=== PATIENT | male | born 1950 | race Two or more races ===

== ENCOUNTER 2017-09-02 15:26 | Inpatient (IN) | payer MEDICARE, MEDICAID ==
[~2017-09-02] VITALS: Ht 177.8 cm; Wt 88.5 kg
--- NOTE | 2017-09-02 15:30 | NUR ---
BBRA FROM HOME FOR SOB X 3 DAYS. PATIENT RECIEVED AWAKE AND ALERT, ON O2 VA NC @2LPM SATING 955. PATIENT APPEARS IN NO APPARENT DISTRESS. SKN IS WARM TO TOUCH AND NON DIAPHORETIC. PATIENT IS AFEBRILE. VSS.
--- NOTE | 2017-09-02 15:41 | NUR ---
PENDING MD CRANE
--- NOTE | 2017-09-02 16:00 | NUR ---
MD QUIROGA AT BEDSIDE
[2017-09-02 16:11] LABS: BASOPHILS # (AUTO) 0.3 /CMM (0.0-0.2); EOSINOPHILS # (AUTO) 0.3 /CMM (0.0-0.7); EOSINOPHILS % (AUTO) 2.9 % (0.0-6.0); HEMATOCRIT 48 % (39-51); HEMOGLOBIN 14.6 g/dL (13.5-17.5); LYMPHOCYTES # (AUTO) 1.4 /CMM (0.8-4.8); LYMPHOCYTES % (AUTO) 15.8 % (20.0-44.0); MEAN CORPUSCULAR HEMOGLOBIN 25 PG (26.0-33.0); MEAN CORPUSCULAR HGB CONC 31 g/dl (31.0-36.0); MEAN CORPUSCULAR VOLUME 81 fL (80-96); MONOCYTES # (AUTO) 0.7 /CMM (0.1-1.30); MONOCYTES % (AUTO) 7.5 % (2.0-12.0); NEUTROPHILS # (AUTO) 6.1 /CMM (1.8-8.9); NEUTROPHILS % (AUTO) 69.8 % (43.0-81.0); PLATELET COUNT (AUTO) 188 /CMM (150-450); RDW COEFFICIENT OF VARIATION 17.9 (11.5-15.0); RED BLOOD CELL COUNT(AUTO) 5.89 MIL/uL (4.5-6.0); WHITE BLOOD COUNT (AUTO) 8.8 K/uL (4.3-11.0)
--- NOTE | 2017-09-02 16:18 | NUR ---
IT TECHNICAL ARCHITECT AT BEDSIDE
[2017-09-02 16:24] LABS: INR 1.22 (0.85-1.15)
[2017-09-02 16:34] LABS: TROPONIN I 0.547 ng/mL (0.00-0.056)
[2017-09-02 16:35] LABS: BILIRUBIN,DIRECT 0.3 mg/dL (0.0-0.2); BILIRUBIN,TOTAL 0.5 mg/dL (0.2-1.0); CALCIUM, SERUM 8.5 mg/dL (8.5-10.1); CREATININE 3.4 mg/dL (0.6-1.3); POTASSIUM 4.9 mmol/L (3.5-5.1); TOTAL PROTEIN, SERUM 7.4 g/dL (6.4-8.2)
[2017-09-02] MEDS ORDERED: ASPIRIN 81 MG TAB.CHEW PO ONE (17:00)
[2017-09-02] MEDS ORDERED: FUROSEMIDE 40 MG/4 ML VIAL IV ONE (17:00)
[2017-09-02] MEDS ORDERED: FUROSEMIDE 40 MG/4 ML VIAL ONE (17:02)
[2017-09-02] MEDS ORDERED: ASPIRIN 81 MG TAB.CHEW ONE (17:03)
[2017-09-02] MEDS ORDERED: GLIM4TAB2 PO (17:58)
[2017-09-02] MEDS ORDERED: FURO40TA5 PO (17:58)
[2017-09-02] MEDS ORDERED: VALS160T2 PO (17:58)
[2017-09-02] MEDS ORDERED: METO-357 PO (17:58)
[2017-09-02] MEDS ORDERED: AMLO5TAB2 PO (17:58)
[2017-09-02] MEDS ORDERED: INSU100I30 SQ (17:58)
[2017-09-02] MEDS ORDERED: ROSU20TA PO (17:58)
[2017-09-02] MEDS ORDERED: DIGO125T PO (17:58)
[2017-09-02] MEDS ORDERED: ESOM40CA PO (17:58)
[2017-09-02] MEDS ORDERED: METF850T2 PO (17:58)
[2017-09-02] MEDS ORDERED: APIX5TAB PO (17:58)
[2017-09-02] MEDS ORDERED: INSU100I4 SQ (17:58)
--- NOTE | 2017-09-02 17:59 | NUR ---
REPORT GIVEN TO ELLYN AGUIRRE FOR MARK
--- NOTE | 2017-09-02 19:20 | NUR ---
[facility] RN NOTE RECIEVED PT IN BED ASLEEP, AROUSABLE. A/O X 4, NO SOB NOTED. NO DISTRESS OR DISCOMFORT NOTED. DENIES PAIN. ON O2 15L SIMPLE MASK O2 SAT 94%. PT GETS SOB ON EXCERTION AND ALSO PT KEPT ON REMOVING THE MASK, REMINDED HIM NOT TO DO THAT. ON TELE MONITOR A FIB HR 70'S CONTROLLED. SL #20 G IN LT HAND INTACT AND PATENT, NO S/S OF INFILTRATION NOTED. SKIN INTACT. FAMILY AT BED SIDE. KEPT HOB ELEVATED. WAITING FOR DR ANGEL ADMITTING ORDERS, VSS. ORIENTED HIM TO HIS ROOM. SIDE RAILS UP X 2 AND CALL LIGHT WITHIN REACH. CONTINUE TO MONITOR HIM.
[2017-09-02 19:27] VITALS: BP 104/80
--- NOTE | 2017-09-02 20:00 | NUR ---
[facility] RN NOTE PAGED DR ANGEL FOR ADMITTING ORDERS.
--- NOTE | 2017-09-02 20:20 | NUR ---
[facility] RN NOTE DR ANGEL VISITED THE FLOOR AND GAVE ADMITTING ORDERS, PT'S ADMITTING DX IS CHF EXACERBATION. ADMITTING ORDERS CHECKED AND CARRIED OUT.
[2017-09-02] MEDS ORDERED: DEXTROSE 50%-WATER 50 ML DISP.SYRIN IV PRN (20:30)
[2017-09-02] MEDS ORDERED: ACETAMINOPHEN 325 MG TABLET PO PRN (20:30)
[2017-09-02] MEDS ORDERED: ONDANSETRON HCL/PF 4 MG/2 ML VIAL IVP PRN (20:30)
[2017-09-02] MEDS ORDERED: ZOLPIDEM TARTRATE 5 MG TABLET PO PRN (20:30)
[2017-09-02] MEDS ORDERED: MAGNESIUM HYDROXIDE 30 ML UDC PO PRN (20:30)
[2017-09-02] MEDS ORDERED: MAG HYDROX/AL HYDROX/SIMETH 30 ML UDC PO PRN (20:30)
[2017-09-02] MEDS ORDERED: Z GUARD REMEDY 2 OZ OINT TP PRN (20:30)
--- NOTE | 2017-09-02 20:30 | NUR ---
[facility] RAGLAND NOTE PT MASK IS CHANGED TO REBRETHER MASK, O2 15L O2 SAT 96% AND AT ROOM AIR IT DROPS TO 82. ALSO REMINDED PT NOT TO REMOVE THE MASK. KEPT HOB ELEVATED TO HELP HIM BREATH BETTER. Addendum: 09/03/17 at 0519 by YUMIKO JAMES RN KEPT THE SIMPLE MASK. ERROR WRITTEN CHANGED TO REBREATHER MASK.
--- NOTE | 2017-09-02 21:00 | NUR ---
[facility] RN NOTE PT DENIED ANY SKIN ISSUES EARLIER, NOTED RT KNEE WITH BRUISE AND DR HENSON, PER PT HE FELL DOWN BEFORE.
[2017-09-02] MEDS: BLOOD SUGAR DIAGNOSTIC 1 EACH STRIP IN SCH (21:51)
[2017-09-02] MEDS: INSULIN REGULAR, HUMAN 100 UNIT/ML 3 ML VIAL SQ PRN (21:54)
--- NOTE | 2017-09-02 23:00 | NUR ---
[facility] RN NOTE PT DENIES ANY CHEST PAIN OR DISCOMFORT. TROP RESULT CAME 0.647. REMAIN A FIB. CONTINUE TO MONITOR. VSS. PT AT TIMES DONOT FOLLOW THE IMPORTANCE OF O2 MASK ON. KEPT ON REMOVING IT. STATES "I AM OK DON'T WORRY". TEACHING ABOUT THE O2 DONE.
--- NOTE | 2017-09-02 23:30 | NUR ---
[facility]IM[facility] RN NOTE DR BONG LAGOS INFORMED REGARDING TROP ELEVATED. AND CARDIAC CONSULT DR SCHOFIELD IN AM. NO NEW ORDER GIVEN AT THIS TIME.
[2017-09-03] VITALS (23 sets, daily range): BP systolic 84–152; BP diastolic 45–74
--- NOTE | 2017-09-03 02:35 | NUR ---
[facility]IM[facility] RN NOTE DR LAGOS INFORMED THAT PT IS VERY CONGESTED WITH SOB, GAVE NEW ORDER OF BTX, ORDER NOTED AND CARRIED OUT. Addendum: 09/03/17 at 0236 by YUMIKO JAMES RN RT INFORMED.
[2017-09-03] MEDS: ALBUTEROL FS 2.5 MG/3 ML VIAL.NEB NEB SCH ×6 (03:25→23:11)
--- NOTE | 2017-09-03 04:37 | NUR ---
[facility] RN NOTE PT NOTED O2 SAT 91% LUNGS SOUND IS CRACKLING WHEN AUSCULTATED. DR LAGOS INFORMED AND RECEIVED NEW ORDER, ORDER NOTED AND CARRIED OUT. LASIX 40 MG IVP GIVEN. K 4.9. VSS. CONTINUE TO MONITOR HIM.
[2017-09-03] MEDS ORDERED: FUROSEMIDE 40 MG/4 ML VIAL IV ONE (05:00)
[2017-09-03] MEDS ORDERED: FUROSEMIDE 40 MG/4 ML VIAL IV SCH (05:00)
--- NOTE | 2017-09-03 05:00 | NUR ---
[facility] RN NOTE PT NOTED O2 SAT DROPPING TO 89%, MASK CHANGE TO NON RE BREATHING. O2 SAT WENT UP TO 95% ON 15 L. KEPT HIGH RUIZ POSITION.
[2017-09-03 05:24] LABS: CALCIUM, SERUM 8.4 mg/dL (8.5-10.1); CREATININE 3.2 mg/dL (0.6-1.3); MAGNESIUM 2.2 mg/dL (1.8-2.4); PHOSPHORUS 6.1 mg/dL (2.5-4.9); POTASSIUM 5.3 mmol/L (3.5-5.1)
[2017-09-03 05:38] LABS: BASOPHILS # (AUTO) 0.2 /CMM (0.0-0.2); BASOPHILS % (AUTO) 1.8 % (0.0-2.0); EOSINOPHILS # (AUTO) 0.3 /CMM (0.0-0.7); EOSINOPHILS % (AUTO) 2.8 % (0.0-6.0); HEMATOCRIT 47 % (39-51); HEMOGLOBIN 14.3 g/dL (13.5-17.5); LYMPHOCYTES # (AUTO) 1.2 /CMM (0.8-4.8); LYMPHOCYTES % (AUTO) 12.1 % (20.0-44.0); MEAN CORPUSCULAR HEMOGLOBIN 25 PG (26.0-33.0); MEAN CORPUSCULAR HGB CONC 30 g/dl (31.0-36.0); MEAN CORPUSCULAR VOLUME 82 fL (80-96); MONOCYTES # (AUTO) 0.8 /CMM (0.1-1.30); MONOCYTES % (AUTO) 8.4 % (2.0-12.0); NEUTROPHILS # (AUTO) 7.6 /CMM (1.8-8.9); NEUTROPHILS % (AUTO) 74.9 % (43.0-81.0); PLATELET COUNT (AUTO) 169 /CMM (150-450); RDW COEFFICIENT OF VARIATION 19.6 (11.5-15.0); RED BLOOD CELL COUNT(AUTO) 5.73 MIL/uL (4.5-6.0); WHITE BLOOD COUNT (AUTO) 10.1 K/uL (4.3-11.0)
--- NOTE | 2017-09-03 05:41 | NUR ---
[facility] RN NOTE TROPONIN LEVEL TRENDING DOWN TO 0.577, DR MONSALVE MADE AWARE. PT DENIES ANY CHEST PAIN.
--- NOTE | 2017-09-03 06:31 | NUR ---
[facility] RN NOTE PT IN BED ASLEEP, EASILY AROUSABLE. REMAIN ON NON REBREATHING MASK ON O2 15L O2 SAT 96%. SL ON LT HAND INTACT AND PATENT. ON TELE A FIB HR IN 100'S. SIDE RAILS UP X 2 AND CALL LIGHT WITHIN REACH. WILL ENDORSE TO DAY SHIFT NURSE FOR CONTINUE TO CARE.
--- NOTE | 2017-09-03 07:30 | NUR ---
[facility] RN AM NOTE RECEIVED PT IN BED, EYES CLOSED, RESPONDS TO NAME AND TOUCH, AOX 3, ON NON REBREATHING MASK ON O2 15L O2 SAT 94%. RESPIRATION UNLABORED,TELE METRY READS AFIB HR 84, DENIES CHEST PAIN/DISCOMFORT. LEFT HAND G20 IVHL, FLUSHES WELL, SITE CLEAR. SE NURSING FLOWSHEET FOR SKIN ISSUES. CARDIAC CCHO DIET. BEDBOUND FOR NOW. SIDE RAILS UP X 2 AND CALL LIGHT WITHIN REACH. WILL CONTINUE TO MONITOR.
[2017-09-03 08:03] LABS: ABG BASE EXCESS -4.8 mmol/L; ABG PCO2 87.6 mmHg (35.0-45.0); ABG PH 7.109 (7.350-7.450); ABG PO2 75.2 mmHg (75.0-100.0); AaDO2 197.5 mmHg; COHb 1.2 % (0.5-1.5); MetHb 0.2 % (0.0-1.5); O2Hb 91.7 % (94.0-97.0); SITE, ABG Right Radial; VENT MODE, BG ON RESP TX
--- NOTE | 2017-09-03 08:23 | NUR ---
[facility] RN NOTES PATIENT TRANSFERRED TO ICU RM [id number]. REPORT GIVEN MARGO Britton ALL BELONGINGS CHECKED AND ENDORSED. Addendum: 09/03/17 at 0946 by HARLEY BROCK RN ADDENDUM UNABLE TO OBTAIN ACCUCHECK DUE TO ONGOING [facility] STAFF MEETING AT THE FLOOR AND PATIENT TRANSFERRED RIGHT AWAY.
[2017-09-03] MEDS ORDERED: APIXABAN 5 MG TABLET PO ONE ×2 (09:00→10:30)
[2017-09-03] MEDS: GLIMEPIRIDE 4 MG TABLET PO SCH (09:00)
[2017-09-03] MEDS ORDERED: METFORMIN 850 MG TABLET PO SCH (09:00)
[2017-09-03] MEDS ORDERED: AMLODIPINE BESYLATE 5 MG TABLET PO SCH (09:00)
[2017-09-03] MEDS: PANTOPRAZOLE 40 MG TABLET.DR PO SCH (09:00)
[2017-09-03] MEDS: FUROSEMIDE 40 MG/4 ML VIAL IV SCH (09:00)
[2017-09-03] MEDS ORDERED: METOPROLOL SUCCINATE 50 MG TAB.SR.24H PO SCH (09:00)
[2017-09-03] MEDS ORDERED: VALSARTAN 80 MG TABLET PO SCH (09:00)
[2017-09-03] MEDS ORDERED: INSULIN ASPART/LISPRO 100 UNIT/ML CARTRIDGE SQ PRN ×2 (09:00)
[2017-09-03] MEDS: BLOOD SUGAR DIAGNOSTIC 1 EACH STRIP IN SCH ×4 (09:08→22:18)
[2017-09-03] MEDS: FUROSEMIDE 100 MG/10 ML VIAL IV SCH ×3 (09:29→17:12)
[2017-09-03 10:33] LABS: ABG BASE EXCESS -2.7 mmol/L; ABG OXYGEN SATURATION 86.5 % (92.0-98.5); ABG PCO2 60.8 mmHg (35.0-45.0); ABG PH 7.245 (7.350-7.450); AaDO2 198.7 mmHg; COHb 1.7 % (0.5-1.5); MetHb 0.5 % (0.0-1.5); O2Hb 84.6 % (94.0-97.0); PEEP,BG 5 cm H2O; SITE, ABG Left Radial; VENT MODE, BG AC 50%; VT, ABG 360 mL
--- NOTE | 2017-09-03 10:58 | NUR ---
FORENSIC INVESTIGATOR NOTE 0830: Received patient from [facility] for Bipap needs secondary to CHF exacerbation. Patient is awake, A/Ox3, Slovak speaking, understands little Chinese. No c/o discomfort at this time. Sat 86% on NRB mask. Placed by RT on Bipap, 18/5 45%, rate 16. With PIV on LH g20, placed new PIV RH g18. Afib 80's. Noted with crackles and rales during auscultation. Will keep NPO for now for Bipap. 0900: Paced on condom catheter for output monitoring. Patient agreed. Asked family to bring Eliquis from home per pharmacy, said she will get it after lunch, made pharmacy aware. S/E by Dr. Lakhani, with order to given 80 Lasix x3 today. 0920: S/E by Dr. Muir, with order to repeat ABG after 1 hr. 1050: Dr. Muir aware for ABG, with order to change Bipap setting 25/10, and repeat ABG @ 1300, RT aware.
[2017-09-03] MEDS: DIGOXIN 0.125 MG TABLET PO SCH (12:32)
[2017-09-03 13:08] LABS: ABG BASE EXCESS -0.1 mmol/L; ABG OXYGEN SATURATION 91.1 % (92.0-98.5); ABG PCO2 70.7 mmHg (35.0-45.0); ABG PH 7.236 (7.350-7.450); AaDO2 177.4 mmHg; COHb 1.2 % (0.5-1.5); MetHb 0.4 % (0.0-1.5); O2Hb 89.6 % (94.0-97.0); SITE, ABG Right Radial; VENT MODE, BG ST 25/10
--- NOTE | 2017-09-03 15:02 | NUR ---
RT NOTE: LATE ENTRY- PATIENT FOUND IN DISTRESS ON A NON-REBREATHER MASK AT 15 LPM. SP02 94%. NOTIFIED CHARGE NURSE (EULOGIO). PLACED ON HHN VIA AEROSOL MASK AND ABG WAS ORDERED AND DRAWN. ABG RESULTS WERE REPORTED TO CHARGE NURSE. [id number] WAS TRANSFERRED TO ICU AND PLACED BIPAP. SETTINGS PER ORDER. PATIENT TOLERATING WELL. ALARMS SET AND AUDIBLE. CHANGES MADE PER 'S ORDER. AMBU BAG AT [facility].
[2017-09-03 16:17] LABS: ABG BASE EXCESS -0.4 mmol/L; ABG OXYGEN SATURATION 92.9 % (92.0-98.5); ABG PH 7.273 (7.350-7.450); ABG PO2 67.3 mmHg (75.0-100.0); AaDO2 255.9 mmHg; COHb 1.3 % (0.5-1.5); MetHb 0.4 % (0.0-1.5); O2Hb 91.3 % (94.0-97.0); SITE, ABG Right Radial; VENT MODE, BG BIPAP 25/8
--- NOTE | 2017-09-03 16:36 | NUR ---
SPINNER FRAME NOTE Updated Dr. Muir re: ABG result, ordered no changes and will do ABG off Bipap in am. at bedside, patient and aware for the POC.
[2017-09-03] MEDS: HOME MED - ELIQUIS 5MG PO SCH (17:12)
--- NOTE | 2017-09-03 18:49 | NUR ---
MANAGER OF ENGINEERING NOTE Patient will be on Bipap overnight, patient remained compliant. Kept clean, warm and dry. Needs attended. Kept call light at reach. PIVs intact. No any significant changes noted at this time. Condom catheter intact. Noted with 2050mL urine output during the shift.
--- NOTE | 2017-09-03 19:30 | NUR ---
INSPECTOR TIMERS INITIAL NOTE RECEIVED PATIENT FROM MARGO RAGLAND. PT IN BED. A/A/O X4. ON BIPAP. TOLERATING SETTINGS. 04/04 RATE 55% RATE 16. LUNG SOUNDS COARSE. BOWEL SOUNDS PRESENT. CONDOM CATH PATENT AND INTACT. PULSES PRESENT. IV PATENT AND INTACT. PT MOVES INDEPENDENTLY IN BED. BED IN LOW LOCKED POSITION. WILL CONTINUE TO MONITOR.
[2017-09-03] MEDS: INSULIN GLARGINE, 100 UNIT/ML CARTRIDGE SQ SCH (22:00)
[2017-09-03] MEDS: ATORVASTATIN 40 MG TABLET PO SCH (22:18)
[2017-09-04] VITALS (18 sets, daily range): BP systolic 91–132; BP diastolic 45–71
[2017-09-04] MEDS: HYDROCODONE/APAP 5/325MG 1 EACH TABLET PO PRN ×2 (01:03→16:50)
[2017-09-04] MEDS: ALBUTEROL FS 2.5 MG/3 ML VIAL.NEB NEB SCH ×6 (03:54→23:54)
[2017-09-04 05:27] LABS: BASOPHILS # (AUTO) 0.1 /CMM (0.0-0.2); BASOPHILS % (AUTO) 1.1 % (0.0-2.0); EOSINOPHILS # (AUTO) 0.4 /CMM (0.0-0.7); EOSINOPHILS % (AUTO) 3.6 % (0.0-6.0); HEMATOCRIT 46 % (39-51); HEMOGLOBIN 14.3 g/dL (13.5-17.5); LYMPHOCYTES # (AUTO) 1.2 /CMM (0.8-4.8); LYMPHOCYTES % (AUTO) 12.3 % (20.0-44.0); MEAN CORPUSCULAR HEMOGLOBIN 25 PG (26.0-33.0); MEAN CORPUSCULAR HGB CONC 31 g/dl (31.0-36.0); MEAN CORPUSCULAR VOLUME 81 fL (80-96); MONOCYTES # (AUTO) 0.8 /CMM (0.1-1.30); MONOCYTES % (AUTO) 7.7 % (2.0-12.0); NEUTROPHILS # (AUTO) 7.6 /CMM (1.8-8.9); NEUTROPHILS % (AUTO) 75.3 % (43.0-81.0); PLATELET COUNT (AUTO) 177 /CMM (150-450); RDW COEFFICIENT OF VARIATION 19.6 (11.5-15.0); RED BLOOD CELL COUNT(AUTO) 5.66 MIL/uL (4.5-6.0); WHITE BLOOD COUNT (AUTO) 10.1 K/uL (4.3-11.0)
[2017-09-04 05:42] LABS: ALBUMIN 2.7 g/dL (3.4-5.0); BILIRUBIN,TOTAL 0.8 mg/dL (0.2-1.0); CALCIUM, SERUM 8.4 mg/dL (8.5-10.1); CREATININE 3.2 mg/dL (0.6-1.3); MAGNESIUM 1.9 mg/dL (1.8-2.4); PHOSPHORUS 4.6 mg/dL (2.5-4.9); POTASSIUM 4.4 mmol/L (3.5-5.1); TOTAL PROTEIN, SERUM 6.9 g/dL (6.4-8.2)
[2017-09-04 06:06] LABS: TROPONIN I 0.402 ng/mL (0.00-0.056)
[2017-09-04] MEDS: BLOOD SUGAR DIAGNOSTIC 1 EACH STRIP IN SCH ×4 (07:39→21:32)
[2017-09-04] MEDS: HOME MED - ELIQUIS 5MG PO SCH ×2 (08:14→16:50)
[2017-09-04] MEDS: FUROSEMIDE 40 MG/4 ML VIAL IV SCH ×3 (08:14→21:37)
[2017-09-04] MEDS: GLIMEPIRIDE 4 MG TABLET PO SCH (08:14)
[2017-09-04] MEDS: DIGOXIN 0.125 MG TABLET PO SCH (08:14)
[2017-09-04] MEDS: PANTOPRAZOLE 40 MG TABLET.DR PO SCH (08:14)
[2017-09-04 09:19] LABS: ABG BASE EXCESS 1.9 mmol/L; ABG OXYGEN SATURATION 85.3 % (92.0-98.5); ABG PCO2 58.5 mmHg (35.0-45.0); ABG PO2 51.2 mmHg (75.0-100.0); AaDO2 137.6 mmHg; COHb 1.1 % (0.5-1.5); MetHb 0.5 % (0.0-1.5); O2Hb 83.9 % (94.0-97.0); SITE, ABG Right Radial; VENT MODE, BG NASAL CANNULA
--- NOTE | 2017-09-04 10:13 | NUR ---
BROADCAST CORRESPONDENT NOTE 0720: Received patient on Bipap, no respiratory distress noted at this time. PIVs intact. Condom cath intact. Noted with clear yellow urine drained to BSD. Afib 80's on the monitor. No S/S hypo/hyperglycemia noted at this time. 0900: S/E by Dr. Jacques, with order to give 3doses of 80mg Lasix x3. 0915: S/E by Dr. Muir, aware for the ABG, with order to place patient on 5LPM of O2 via NC from 4LPM. 1000: at bedside, aware for the POC. No any significant changes noted at this time.
--- NOTE | 2017-09-04 12:50 | NUR ---
DATA MIGRATION LEAD NOTE S/E by Dr. Martinez, with order to transfer patient to [facility]. Transferred patient to [facility] via bed, stable. O2 sat 89-91% on 5LPM of O2 via NC. Made Dr. Muir aware re: the transfer and agreed. at bedside. Endorsed to Frances RAGLAND for MARK. PIVs intact. Condom cath intact.
--- NOTE | 2017-09-04 13:00 | NUR ---
RN NOTES RECEIVED PT FROM ICU. A&0X3 PRIMARILY POLISH SPEAKING. ON 5L NC SATING 92%. A FIB ON THE TELE SHANIKA HR 87. RH 18G IV, LH20G IV SITE INTACT. FAMILY AT BEDSIDE. CONDOM CATH DRAINING TO GRAVITY YELLOW IN COLOR. WILL CONT TO SHANIKA.
[2017-09-04] MEDS: INSULIN REGULAR, HUMAN 100 UNIT/ML 3 ML VIAL SQ PRN ×2 (13:05→22:01)
--- NOTE | 2017-09-04 18:37 | NUR ---
RN NOTES PT REMAINED IN STABLE CONDITION THROUGHOUT THE SHIFT, ALL NEEDS MET. WILL ENDORSE TO ONCOMING SHIFT.
--- NOTE | 2017-09-04 19:30 | NUR ---
RN/TELE NOTES: RECEIVED PT. IN BED W/ HOB ELEVATED AT 45 DEGREES. A/O X 3. MOSTLY [place] SPEAKING ONLY. ON TELE MONITOR W/ AFIB W/ PVC @ 76. DENIES ANY C/O CHEST PAIN OR SOB AT THIS TIME. ON 5L NC SAT 92% RH 18G IV, LH20G IV SITE INTACT. CONTINENT OF B/B. USES URINAL. CALL LIGHT W/ REACH. WILL CONT TO [facility].
[2017-09-04] MEDS: ATORVASTATIN 40 MG TABLET PO SCH (21:37)
[2017-09-04] MEDS: INSULIN GLARGINE, 100 UNIT/ML CARTRIDGE SQ SCH (22:00)
[2017-09-05] VITALS: BP 104/45
[2017-09-05] MEDS: ALBUTEROL FS 2.5 MG/3 ML VIAL.NEB NEB SCH ×6 (03:55→23:00)
[2017-09-05 04:00] VITALS: BP 112/67
[2017-09-05] MEDS: FUROSEMIDE 40 MG/4 ML VIAL IV SCH (04:30)
[2017-09-05 06:43] LABS: BASOPHILS # (AUTO) 0.1 /CMM (0.0-0.2); BASOPHILS % (AUTO) 0.6 % (0.0-2.0); EOSINOPHILS # (AUTO) 0.4 /CMM (0.0-0.7); EOSINOPHILS % (AUTO) 3.3 % (0.0-6.0); HEMATOCRIT 46 % (39-51); HEMOGLOBIN 14.3 g/dL (13.5-17.5); LYMPHOCYTES # (AUTO) 1.4 /CMM (0.8-4.8); LYMPHOCYTES % (AUTO) 12.9 % (20.0-44.0); MEAN CORPUSCULAR HEMOGLOBIN 25 PG (26.0-33.0); MEAN CORPUSCULAR HGB CONC 31 g/dl (31.0-36.0); MEAN CORPUSCULAR VOLUME 80 fL (80-96); MONOCYTES % (AUTO) 9.7 % (2.0-12.0); NEUTROPHILS % (AUTO) 73.5 % (43.0-81.0); PLATELET COUNT (AUTO) 184 /CMM (150-450); RED BLOOD CELL COUNT(AUTO) 5.71 MIL/uL (4.5-6.0); WHITE BLOOD COUNT (AUTO) 10.8 K/uL (4.3-11.0)
[2017-09-05 07:01] LABS: CALCIUM, SERUM 8.7 mg/dL (8.5-10.1); CREATININE 2.8 mg/dL (0.6-1.3); MAGNESIUM 1.9 mg/dL (1.8-2.4); POTASSIUM 3.6 mmol/L (3.5-5.1)
--- NOTE | 2017-09-05 07:43 | NUR ---
RN/TELE NOTES: NO ACUTE CHANGES NOTED DURING THIS SHIFT. REPORT GIVEN TO AM NURSE FOR MARK.
[2017-09-05 08:00] VITALS: BP 115/49
[2017-09-05] MEDS: PANTOPRAZOLE 40 MG TABLET.DR PO SCH (08:10)
[2017-09-05] MEDS: GLIMEPIRIDE 4 MG TABLET PO SCH (08:10)
[2017-09-05] MEDS: BLOOD SUGAR DIAGNOSTIC 1 EACH STRIP IN SCH ×4 (08:10→21:02)
[2017-09-05] MEDS: HOME MED - ELIQUIS 5MG PO SCH ×2 (08:11→17:48)
[2017-09-05] MEDS: DIGOXIN 0.125 MG TABLET PO SCH (08:11)
[2017-09-05] MEDS: INSULIN REGULAR, HUMAN 100 UNIT/ML 3 ML VIAL SQ PRN ×4 (08:15→21:07)
[2017-09-05] MEDS: HYDROCODONE/APAP 5/325MG 1 EACH TABLET PO PRN ×2 (11:09→19:46)
[2017-09-05] MEDS: BUMETANIDE (1 MG) 1 MG TABLET PO SCH (13:27)
[2017-09-05 16:00] VITALS: BP 118/50
--- NOTE | 2017-09-05 18:39 | NUR ---
SOB ON EXERTION. 6L NC 93%. AMBULATED WITH PT. OOB AD JUSTINE. AT BEDSIDE. ACCIDENTALLY PULLED X2 IV HL THIS SHIFT. WILL RESTART. TOLERATING DIET. TELE SHOWS AFIB WITH BBB, PVS'S BIGEMINY. BED LOW AND LOCKED. CALL LIGHT WITHIN REACHED. WILL CONT TO MONITOR.
--- NOTE | 2017-09-05 19:30 | NUR ---
RN/TELE NOTES: RECEIVED PT. IN BED W/ HOB ELEVATED AT 45 DEGREES. A/O X 3. MOSTLY WELSH SPEAKING ONLY. ON TELE MONITOR W/ AFIB W/ PVC @ 76. DENIES ANY C/O CHEST PAIN OR SOB AT THIS TIME. ON 6L NC SAT 91 % WELL. IV SL TO RH G 20 PATENT AND INTACT W/ NO S/S OF INFECTION/INFILTRATION NOTED.. CONTINENT OF B/B. ENCOURAGED TO USE URINAL FOR ACCURATE OUTPUT. CALL LIGHT W/ REACH. PT. REFUSED BIPAP TONIGHT. NOT IN ANY RESPIRATORY DISTRESS. WILL CONTINUE TO MONITOR.
[2017-09-05 20:00] VITALS: BP 115/60
[2017-09-05] MEDS: ATORVASTATIN 40 MG TABLET PO SCH (21:09)
[2017-09-05] MEDS: INSULIN GLARGINE, 100 UNIT/ML CARTRIDGE SQ SCH (22:00)
[2017-09-06] VITALS: BP 116/51
[2017-09-06] MEDS: ALBUTEROL FS 2.5 MG/3 ML VIAL.NEB NEB SCH (03:01)
[2017-09-06 04:00] VITALS: BP 99/43
[2017-09-06 06:32] LABS: BASOPHILS # (AUTO) 0.1 /CMM (0.0-0.2); BASOPHILS % (AUTO) 0.7 % (0.0-2.0); EOSINOPHILS # (AUTO) 0.4 /CMM (0.0-0.7); EOSINOPHILS % (AUTO) 4.2 % (0.0-6.0); HEMATOCRIT 48 % (39-51); LYMPHOCYTES # (AUTO) 1.2 /CMM (0.8-4.8); LYMPHOCYTES % (AUTO) 13.1 % (20.0-44.0); MEAN CORPUSCULAR HEMOGLOBIN 25 PG (26.0-33.0); MEAN CORPUSCULAR HGB CONC 32 g/dl (31.0-36.0); MEAN CORPUSCULAR VOLUME 80 fL (80-96); MONOCYTES # (AUTO) 0.8 /CMM (0.1-1.30); MONOCYTES % (AUTO) 8.3 % (2.0-12.0); NEUTROPHILS # (AUTO) 6.8 /CMM (1.8-8.9); NEUTROPHILS % (AUTO) 73.7 % (43.0-81.0); PLATELET COUNT (AUTO) 178 /CMM (150-450); RDW COEFFICIENT OF VARIATION 18.3 (11.5-15.0); RED BLOOD CELL COUNT(AUTO) 5.93 MIL/uL (4.5-6.0); WHITE BLOOD COUNT (AUTO) 9.3 K/uL (4.3-11.0)
[2017-09-06 06:53] LABS: CALCIUM, SERUM 8.7 mg/dL (8.5-10.1); CREATININE 2.3 mg/dL (0.6-1.3); POTASSIUM 3.4 mmol/L (3.5-5.1)
--- NOTE | 2017-09-06 06:58 | NUR ---
RN/TELE NOTES: PT. REFUSED BIPAP LAST NIGHT. SLEEPS ON AND OFF IN BED AND IN CHAIR. VISITED PT. LAST NIGHT. NOT ANY ACUTE CHANGES NOTED DURING THE SHIFT. REPORT GIVEN TO AM NURSE FOR MARK.
--- NOTE | 2017-09-06 07:18 | NUR ---
STONEWORKER OPENING NOTES RECEIVED PATIENT IN BED RESTING IN BED. A/OX3, KYRGYZ SPEAKING.ON O2 6LPM VIA NC, SPO2 93%. HOB ELEVATED. NO ACUTE DISTRESS, NO SOB NOTED. DENIES PAIN OR DISCOMFORT. IV SITE INTACT AND PATENT. KEPT PATIENT SAFE AND COMFORTABLE IN BED. BED IN LOW LOCKED POSITION, SIDERAILS UPX2, CALL LIGHT IN REACH. WILL CONTINUE TO MONITOR ACCORDINGLY.
[2017-09-06] MEDS: BLOOD SUGAR DIAGNOSTIC 1 EACH STRIP IN SCH (07:30)
[2017-09-06 08:00] VITALS: BP 104/65
[2017-09-06] MEDS: INSULIN REGULAR, HUMAN 100 UNIT/ML 3 ML VIAL SQ PRN ×2 (08:16→08:34)
[2017-09-06] MEDS: PANTOPRAZOLE 40 MG TABLET.DR PO SCH (08:25)
[2017-09-06] MEDS: GLIMEPIRIDE 4 MG TABLET PO SCH (08:25)
[2017-09-06] MEDS: DIGOXIN 0.125 MG TABLET PO SCH (08:26)
[2017-09-06] MEDS: BUMETANIDE (1 MG) 1 MG TABLET PO SCH (08:26)
[2017-09-06] MEDS: HOME MED - ELIQUIS 5MG PO SCH (08:27)
--- NOTE | 2017-09-06 08:38 | NUR ---
BS= 156, 2 UNITS GIVEN
[2017-09-06] MEDS ORDERED: POTA20TA83 PO (10:59)
[2017-09-06] MEDS ORDERED: BUME1TAB4 PO (10:59)
[2017-09-06] MEDS ORDERED: POTASSIUM CHLORIDE 20 MEQ TAB.PRT.SR PO ONE (11:00)
--- NOTE | 2017-09-06 12:30 | NUR ---
MANAGER BIOSTATISTICS NOTES DISCHARGED PATIENT IN STABLE CONDITION ACCOMPANIED BY DAUGHTER AND RN. DISCHARGE INSTRUCTIONS GIVEN, VERBALIZED UNDERSTANDING. DISCONTINUED IV SITE, APPLIED PRESSURE, NO BLEEDING, NO COMPLICATIONS NOTED. REMOVED ARM BAND. ALL BELONGING RETURNED, FORMED SIGNED.
== END 2017-09-06 12:31 | disposition home or self-care (01) | DRG 280 ==
LOC: ER 15:29 → TELE-TD 18:48 → ICU 09-03 08:11 → TELE1 09-04 12:27
PROVIDERS: ADMIT Family Medicine; ATTEND Family Medicine
PROC: 5A09357 Assistance with Respiratory Ventilation, Less than 24 Consecutive Hours, Continuous Positive Airway Pressure (ICD-10-PCS; principal; 2017-09-03)
DX: I13.0 Hypertensive heart and chronic kidney disease with heart failure and stage 1 through stage 4 chronic kidney disease, or unspecified chronic kidney disease (principal); N17.0 Acute kidney failure with tubular necrosis; I21.A1 Myocardial infarction type 2; J96.21 Acute and chronic respiratory failure with hypoxia; J96.22 Acute and chronic respiratory failure with hypercapnia; I50.33 Acute on chronic diastolic (congestive) heart failure; E44.1 Mild protein-calorie malnutrition; E66.2 Morbid (severe) obesity with alveolar hypoventilation; E11.22 Type 2 diabetes mellitus with diabetic chronic kidney disease; F17.210 Nicotine dependence, cigarettes, uncomplicated; E78.5 Hyperlipidemia, unspecified; I25.10 Atherosclerotic heart disease of native coronary artery without angina pectoris; I48.91 Unspecified atrial fibrillation; Z86.73 Personal history of transient ischemic attack (TIA), and cerebral infarction without residual deficits; N18.9 Chronic kidney disease, unspecified; E88.09 Other disorders of plasma-protein metabolism, not elsewhere classified; E11.65 Type 2 diabetes mellitus with hyperglycemia; Z79.4 Long term (current) use of insulin; Z68.28 Body mass index [BMI] 28.0-28.9, adult; Z95.810 Presence of automatic (implantable) cardiac defibrillator; Z66 Do not resuscitate; Z79.01 Long term (current) use of anticoagulants; Z95.1 Presence of aortocoronary bypass graft
CPT/HCPCS: 36415; 36600; 71045-TC; 80048-TC; 80053-TC; 80061-TC; 80076-TC; 80162-TC; 82803-TC; 82962-TC; 83735-TC; 83880; 84100-TC; 84484-TC; 85025-TC; 85730-TC; 87081-TC; 93307-TC; A4349; A4606; J1815; J1940; Z7610

== ENCOUNTER 2021-11-20 09:30 | Outpatient (CLI) | payer MEDICARE, OTHER ==
[~2021-11-20 09:30] MED LIST: AMLO-212 PO; APIX5TAB PO; BUME1TAB8 PO; DIGO125T PO; ESOM40CA PO; GLIM4TAB37 PO; INSU100I30 SQ; INSU100I4 SQ; METO-357 PO; POTA20TA83 PO; ROSU20TA2 PO
[2021-11-20 15:50] LABS: BASOPHILS # (AUTO) 0.1 K/uL (0.0-0.2); BASOPHILS % (AUTO) 0.7 % (0.0-2.0); HEMATOCRIT 37 % (39-51); HEMOGLOBIN 11.4 g/dL (13.5-17.5); MEAN CORPUSCULAR HGB CONC 31 g/dl (31.0-36.0); MEAN CORPUSCULAR VOLUME 78 fL (80-96); MONOCYTES # (AUTO) 0.6 K/uL (0.1-1.30); MONOCYTES % (AUTO) 7.6 % (2.0-12.0); NEUTROPHILS % (AUTO) 77.7 % (43.0-81.0); PLATELET COUNT (AUTO) 136 K/uL (150-450); RED BLOOD CELL COUNT(AUTO) 4.68 MIL/uL (4.5-6.0); WHITE BLOOD COUNT (AUTO) 7.7 K/uL (4.3-11.0)
[2021-11-20 16:03] LABS: BILIRUBIN,URINE NEGATIVE (NEGATIVE); COLOR,URINE YELLOW (YELLOW); LEUKOCYTE ESTERASE ,URINE NEGATIVE (NEGATIVE); NITRITE, URINE NEGATIVE (NEGATIVE); PH,URINE 5.5 (5.0-8.0); PROTEIN,URINE 30 mg/dl (NEGATIVE); UGLUCOSE NEGATIVE (NEGATIVE); UROBILINOGEN,URINE 0.2 EU/dL (0.2)
[2021-11-20 16:20] LABS: CREATININE, URINE 48.1 MG/DL (30.0-125.0); URINE TOTAL PROTEIN 62.4 mg/dL (0-11.9)
[2021-11-20 16:24] LABS: BACTERIA,URINE Few /HPF (None Seen); CHOLESTEROL 126 mg/dL (<200); HDL CHOLESTEROL 46 mg/dL (40-60); LDL 54 mg/dL (0-99); RBC,URINE 51-80 /HPF (0-2); SQUAMOUS EPITHELIAL CELL,UR Rare /HPF (None Seen); TRIGLYCERIDES 155 mg/dL (30-150)
[2021-11-20 16:26] LABS: C-REACTIVE PROTEIN 1.9 mg/dL (0.0-0.9)
[2021-11-20 16:30] LABS: ALANINE AMINOTRANSFERASE 11 U/L (12-78); ALBUMIN 3.8 g/dL (3.4-5.0); ALKALINE PHOSPHATASE 119 U/L (46-116); ASPARTATE AMINOTRANSFERASE 11 U/L (15-37); BILIRUBIN,TOTAL 0.7 mg/dL (0.2-1.0); CALCIUM, SERUM 8.5 mg/dL (8.5-10.1); CARBON DIOXIDE 25 mmol/L (21-32); CHLORIDE 101 mmol/L (98-107); GLUCOSE 144 mg/dL (74-106); MAGNESIUM 2.2 mg/dL (1.8-2.4); POTASSIUM 4.8 mmol/L (3.5-5.1); SODIUM SERUM 139 mmol/L (136-145); TOTAL PROTEIN, SERUM 8.6 g/dL (6.4-8.2)
[2021-11-21 07:07] LABS: *ANA ANTI-CENTROMERE B AB <0.2 AI (0.0-0.9); *ANA ANTI-DNA(DS) AB, QN 2 IU/mL (0-9); *ANA ANTI-JO-1 <0.2 AI (0.0-0.9); *ANA ANTICHROMATIN ANTIBODY <0.2 AI (0.0-0.9); *ANA RNP ANTIBODIES <0.2 AI (0.0-0.9); *ANA SJOGREN'S ANTI-SS-A <0.2 AI (0.0-0.9); *ANA SJOGREN'S ANTI-SS-B <0.2 AI (0.0-0.9); *ANAANTI-SCLERODERMA-70 AB 0.4 AI (0.0-0.9); *ANASMITH AB <0.2 AI (0.0-0.9); COMPLEMENT C3, SERUM 140 mg/dL (82-167); COMPLEMENT C4, SERUM 25 mg/dL (12-38)
[2021-11-21 09:50] LABS: UREA NITROGEN, BLOOD 89 mg/dL (7-18)
[2021-11-21 13:07] LABS: *SPE A/G RATIO 0.8 (0.7-1.7); *SPE ALPHA-1-GLOBULIN 0.3 g/dL (0.0-0.4); *SPE BETA GLOBULIN 1.2 g/dL (0.7-1.3); *SPE M-SPIKE Not Observed g/dL (Not Observed)
== END 2021-11-20 23:59 | disposition home or self-care (01) ==
LOC: MSC 09:30
PROVIDERS: ATTEND Internal Medicine
DX: E11.22 Type 2 diabetes mellitus with diabetic chronic kidney disease (principal); I13.0 Hypertensive heart and chronic kidney disease with heart failure and stage 1 through stage 4 chronic kidney disease, or unspecified chronic kidney disease; N18.4 Chronic kidney disease, stage 4 (severe); I50.9 Heart failure, unspecified; I25.10 Atherosclerotic heart disease of native coronary artery without angina pectoris; Z95.1 Presence of aortocoronary bypass graft; E83.9 Disorder of mineral metabolism, unspecified; M89.9 Disorder of bone, unspecified; D64.9 Anemia, unspecified; I49.9 Cardiac arrhythmia, unspecified; E78.5 Hyperlipidemia, unspecified
CPT/HCPCS: 36415; 80053; 80061; 81001; 82043; 82306; 82570 ×2; 82607; 82746; 83036; 83735; 83970; 84100; 84155 ×2; 84156; 84165; 85025; 85652; 86140; 86160 ×2; 86225; 86235 ×8; G0463

== ENCOUNTER 2021-11-22 10:32 | Outpatient (CLI) | payer MEDICARE, OTHER | END 2021-11-22 23:59 | disposition home or self-care (01) | LOC: US 10:32 | PROVIDERS: ATTEND Internal Medicine | DX: N18.9 Chronic kidney disease, unspecified (principal); N17.9 Acute kidney failure, unspecified | CPT/HCPCS: 76770-TC ==

== ENCOUNTER 2021-11-27 09:00 | Outpatient (CLI) | payer MEDICARE, OTHER | END 2021-11-27 23:59 | disposition home or self-care (01) | LOC: MSC 09:00 | PROVIDERS: ATTEND Internal Medicine | DX: E11.22 Type 2 diabetes mellitus with diabetic chronic kidney disease (principal); I13.0 Hypertensive heart and chronic kidney disease with heart failure and stage 1 through stage 4 chronic kidney disease, or unspecified chronic kidney disease; N18.4 Chronic kidney disease, stage 4 (severe); I50.9 Heart failure, unspecified; R31.9 Hematuria, unspecified; E83.9 Disorder of mineral metabolism, unspecified; M89.9 Disorder of bone, unspecified; I25.10 Atherosclerotic heart disease of native coronary artery without angina pectoris; Z95.1 Presence of aortocoronary bypass graft; I49.9 Cardiac arrhythmia, unspecified; D64.9 Anemia, unspecified; E78.5 Hyperlipidemia, unspecified ==

== ENCOUNTER → 2021-12-25 | Outpatient (CLI) | payer MEDICARE, OTHER | END | disposition home or self-care (01) | LOC: MSC 15:00 | PROVIDERS: ATTEND Internal Medicine | DX: E11.22 Type 2 diabetes mellitus with diabetic chronic kidney disease (principal); I13.0 Hypertensive heart and chronic kidney disease with heart failure and stage 1 through stage 4 chronic kidney disease, or unspecified chronic kidney disease; N18.4 Chronic kidney disease, stage 4 (severe); I50.9 Heart failure, unspecified; R31.9 Hematuria, unspecified; E83.9 Disorder of mineral metabolism, unspecified; M89.9 Disorder of bone, unspecified; I25.10 Atherosclerotic heart disease of native coronary artery without angina pectoris; Z95.1 Presence of aortocoronary bypass graft; I49.9 Cardiac arrhythmia, unspecified; D64.9 Anemia, unspecified; E78.5 Hyperlipidemia, unspecified ==